=== PATIENT | male | born 1995 | race American Indian/Alaskan Native ===

== ENCOUNTER 2020-10-12 06:37 | Day surgery (SDC) | payer BC ==
[2020-10-08 10:13] LABS: Hematocrit 46.4 % (35.5-45.6); Hemoglobin 15.7 gm/dl (11.8-15.2); Mean Corpuscular HGB Conc 34 % (32-34); Mean Corpuscular Volume 88 fl (84-94); Platelet Count 128 K/mm3 (140-440); Red Blood Count 5.29 M/mm3 (3.65-5.03); Red Cell Distribution Width 13.4 % (13.2-15.2)
[2020-10-08 10:31] LABS: Blood Urea Nitrogen 19 mg/dL (9-20); Calcium 9.5 mg/dL (8.4-10.2); Hemolysis Index 5
[2020-10-08 10:39] LABS: BUN/Creatinine Ratio 27
[~2020-10-12 06:37] MED LIST: ACETAMINOPHEN 500 MG TAB PO SCH; BACTERIOSTATIC SODIUM CHLORIDE 0.9% 30 ML VIAL INFILTRATI ONE; CELECOXIB 200 MG CAP PO NR; GABAPENTIN 300 MG CAP PO NR; LACTATED RINGERS 1,000 ML IV SCH; MAGNESIUM OXIDE 400 MG TAB PO SCH; MIDAZOLAM 2 MG/2 ML INJ IV NR
[2020-10-12] MEDS ORDERED: ceFAZolin/STERILE WATER 2 GM/20 ML SYRINGE IV NR (07:00)
--- NOTE | 2020-10-12 07:08 | Anesthesia Consultation ---
Anesthesia Consult and Med Hx Date of service: 10/12/20 - Airway Anesthetic Teeth Evaluation: Good ROM Head & Neck: Adequate Mental/Hyoid Distance: Adequate Mallampati Class: Class II Intubation Access Assessment: Good - Pulmonary Exam CTA: Yes - Cardiac Exam Cardiac Exam: RRR - Pre-Operative Health Status ASA Pre-Surgery Classification: ASA1 Proposed Anesthetic Plan: General - Pulmonary Hx Smoking: No Hx Asthma: Yes (INHALER USE PRN-LAST USED 1 MONTH AGO) Hx Sleep Apnea: No (MARTHA PRE SCREEN LOW RISK) - Central Nervous System Hx Psychiatric Problems: No - Hematic Hx Anemia: No - Other Systems Hx Cancer: No
--- NOTE | 2020-10-12 07:09 | Anesthesia Day of Surgery ---
Anesthesia Day of Surgery - Day of Surgery Patient Examined: Yes Patient H&P Reviewed: Yes Patient is NPO: Yes
[2020-10-12] MEDS ORDERED: BUPIVACAINE/PF (0.5%) 5 MG/1 ML 30 ML VIAL INFILTRATI ONE ×2 (07:28→08:33)
[2020-10-12] MEDS ORDERED: SUCCINYLCHOLINE CHLORIDE 200 MG/10 ML INJ MDV ONE (07:28)
[2020-10-12] MEDS ORDERED: ONDANSETRON 4 MG/2 ML INJ ONE (07:28)
[2020-10-12] MEDS ORDERED: GLYCOPYRROLATE 0.4 MG/2 ML INJ ONE (07:28)
[2020-10-12] MEDS ORDERED: fentaNYL 100 MCG/2 ML INJ ONE (07:28)
[2020-10-12] MEDS ORDERED: NEOSTIGMINE 10MG/10 ML INJ MDV ONE (07:28)
[2020-10-12] MEDS ORDERED: LIDOCAINE MPF (2%) 20 MG/1 ML VIAL 5 ML ONE (07:28)
[2020-10-12] MEDS ORDERED: dexAMETHasone 20 MG/5 ML VIAL ONE (07:28)
[2020-10-12] MEDS ORDERED: propofoL 200 MG/20 ML VIAL IV ONE (07:28)
[2020-10-12] MEDS ORDERED: LIDOCAINE (1%) 10 MG/1 ML VIAL 20 ML MDV ONE (07:28)
[2020-10-12] MEDS ORDERED: PHENYLEPHRINE/NS 1,000 MCG/10 ML SYRINGE (OR USE) IV ONE (07:28)
[2020-10-12] MEDS ORDERED: ROCURONIUM 50 MG/5 ML INJ IV ONE (07:28)
[2020-10-12] MEDS ORDERED: ePHEDrine SULFATE 50 MG/1 ML INJ ONE (08:04)
[2020-10-12] MEDS ORDERED: ONDANSETRON 4 MG/2 ML INJ IV PRN (08:22)
[2020-10-12] MEDS ORDERED: HYDROmorphone 1 MG/1 ML INJ IV PRN ×2 (08:22)
[2020-10-12] MEDS ORDERED: LIDOCAINE (1%) 10 MG/1 ML VIAL 20 ML MDV INFILTRATI ONE (08:34)
[2020-10-12] MEDS ORDERED: WATER FOR IRRIG STERILE 1,500 ML BOTTLE IR ONE (08:35)
[2020-10-12] MEDS ORDERED: HYDROmorphone 1 MG/1 ML INJ ONE (09:42)
[2020-10-12] MEDS ORDERED: SODIUM CHLORIDE 0.9% IRRIG SOLN 2000 ML IR ONE (10:38)
--- NOTE | 2020-10-12 10:57 | Short Stay Summary ---
Short Stay Documentation Date of service: 10/12/20 - History Principal diagnosis: right inguinal hernia H&P: obtained from office - Allergies and Medications Current Medications: Allergies No Known Allergies Allergy (Verified 10/06/20 15:30) Home Medications Medication Instructions Recorded Confirmed Last Taken Type Albuterol Sulfate [Proventil Hfa] 2 puff IH PRN PRN 10/06/20 10/12/20 10/12/20 06:00 History Active Medications Acetaminophen (Acetaminophen 500 Mg Tab) 1,000 mg PO ONCE SARAH Stop: 10/12/20 23:00 Last Admin: 10/12/20 07:10 Dose: 1,000 mg Documented by: Cefazolin Sodium (Cefazolin/Sterile Water 2 Gm/20 Ml Syringe) 2 gm IV PREOP NR Stop: 10/12/20 23:45 Celecoxib (Celecoxib 200 Mg Cap) 400 mg PO PREOP NR Stop: 10/12/20 23:00 Last Admin: 10/12/20 07:10 Dose: 400 mg Documented by: Gabapentin (Gabapentin 300 Mg Cap) 600 mg PO PREOP NR Stop: 10/12/20 23:00 Last Admin: 10/12/20 07:10 Dose: 600 mg Documented by: Hydromorphone HCl (Hydromorphone 1 Mg/1 Ml Inj) 0.25 mg IV Q10MIN PRN PRN Reason: Pain, Moderate (4-6) Stop: 10/12/20 23:00 Hydromorphone HCl (Hydromorphone 1 Mg/1 Ml Inj) 0.5 mg IV Q10MIN PRN PRN Reason: Pain , Severe (7-10) Stop: 10/12/20 23:00 Lactated Ringer's (Lactated Ringers) 1,000 mls @ 125 mls/hr IV DIRECT SARAH Last Admin: 10/12/20 07:15 Dose: 125 mls/hr Documented by: Magnesium Oxide (Magnesium Oxide 400 Mg Tab) 400 mg PO ONCE SARAH Stop: 10/12/20 23:01 Last Admin: 10/12/20 07:10 Dose: 400 mg Documented by: Midazolam HCl (Midazolam 2 Mg/2 Ml Inj) 2 mg IV PREOP NR Stop: 10/12/20 23:59 Last Admin: 10/12/20 07:20 Dose: 2 mg Documented by: Ondansetron HCl (Ondansetron 4 Mg/2 Ml Inj) 4 mg IV ONCE PRN PRN Reason: Nausea And Vomiting Stop: 10/12/20 23:00 - Brief post op/procedure progress note Date of procedure: 10/12/20 Pre-op diagnosis: right inguinal hernia Post-op diagnosis: other (bilateral inguinal hernia) Procedure: robotic assisted bilateral inguinal hernia repair with mesh Anesthesia: GETA, local, other (ilioinguinal nerve block b/l) Findings: 1. Large indirect right inguinal hernia containing omentum 2. Small indirect left inguinal hernia Surgeon: Edd GA [employer] TECHNICIAN - [employer]) Estimated blood loss: minimal Pathology: none Condition: stable - Hospital course Hospital course: Pt observed in PACU and discharged to home in stable condition when criteria met - Disposition Condition at discharge: Good Disposition: DC-01 TO HOME OR SELFCARE Short Stay Discharge Plan Activity: other (no heavy lifting greater than 15 lbs) Diet: regular Wound: open to air Additional Instructions: SEE PRINTED DISCHARGE INSTRUCTIONS Follow up with: PRIMARY CARE,MD [Primary Care Provider] - 7 Days IVA BARRETT DO [Staff Physician] - 14 Days Prescriptions: Gabapentin 300 mg PO BID #6 capsule Ibuprofen [Motrin 800 MG tab] 800 mg PO Q8HR #30 tablet oxyCODONE /ACETAMINOPHEN [Percocet 5/325] 1 tab PO Q4HR PRN #20 tab PRN Reason: Pain , Severe (7-10)
[2020-10-12] MEDS ORDERED: oxyCODONE /ACETAMINOPHEN 5-325MG TAB PO PRN (11:00)
--- NOTE | 2020-10-12 11:43 | Operative Report ---
Operative Report Operative Report: Date of procedure: 10/12/20 Pre-op diagnosis: right inguinal hernia Post-op diagnosis: other (bilateral inguinal hernia) Procedure: Robotic assisted bilateral inguinal hernia repair with mesh Anesthesia: GETA, local, other (ilioinguinal nerve block b/l) Findings: 1. Large indirect right inguinal hernia containing omentum 2. Small indirect left inguinal hernia Surgeon: IVA BARRETT (Edd Lockwood - TER[facility]) Estimated blood loss: minimal Pathology: none Condition: stable Hospital course: Pt observed in PACU and discharged to home in stable condition when criteria met HPI and indication: Patient is a 25-year-old male with a longstanding history of a right inguinal hernia. The hernia is reducible however has become more bothersome and larger over time. It was recommended that the hernia be repaired. I discussed all risk, benefits, alternatives to repair with the patient and questions were answered. I explained that if the hernia was found on the left side at the same time, this would be fixed as well. The patient was agreeable. Consent obtained for robotic assisted left inguinal hernia repair with mesh, possible right, possible open. Procedure in detail: Patient was identified in the preoperative area, take back to operating room placed on operative table in supine position. After anesthesia was induced both arms were tucked and all bony prominences padded appropriately. A Lynn catheter was sterilely placed by the circulating nurse. The abdomen and b/l groin was then prepped and draped in usual sterile fashion a timeout performed. Local anesthetic was infiltrated to skin at the intended incision sites. A supraumbilical incision was made through which a Veress needle was inserted. Veress needle positioning was confirmed using saline drop test and the abdomen insufflated to 15 mmHg. Once the abdomen was insufflated, the Veress needle was removed and a 5 mm Optiview trocar was placed as incision. The abdomen is inspected there was no underlying injury to any of the abdominal structures. Patient was placed in Trendelenburg and the pelvis examined. There was a large right inguinal hernia containing omentum. There was also a very small left inguinal hernia. At this point, an 8 mm right upper quadrant and left upper quadrant robotic trocars were then placed under direct visualization. The 5 mm supraumbilical trocar was removed and replaced with a 12 mm balloon trocar under direct visualization. A Ray-Pantera was placed into the abdomen. The robot was then docked. A fenestrated bipolar was placed into arm #2 and a monopolar scissor in arm #1. The surgeon was then transferred to the console. I started by repairing the RIGHT inguinal hernia. First, I created a preperitoneal flap. The omentum was reduced. The peritoneum was scored approximately 5 to 6 cm from the hernia defect. The peritoneum was then incised from the midline to the ASIS. The preperitoneal flap was then developed in an avascular plane. I first defined the medial margin by dissecting to the pubic tubercle. The pubic tubercle was cleared of overlying fatty tissue using blunt dissection. I then created the lateral margin in a similar fashion. Great care was taken to avoid injury to any nerves. I then started to reduce the hernia sac. The hernia sac was grasped and retracted laterally and cremasteric muscles were divided in a very careful fashion. During the dissection, the cord structures were identified and protected. The cord structures and vas deferens were visualized throughout the entire dissection. There was a small cord lipoma associated with the hernia sac which was reduced. Once the hernia sac was completely excised, the peritoneal flap was checked for hemostasis. Any additional cremasteric fibers that were were tenting up the peritoneum were divided. The hernia sac was large and redundant. Hemostasis was carefully ensured. I then proceeded to repairing the LEFT side. The dissection was carried out in a similar fashion to left side. The peritoneal flap was carried out to the right side and one large flap created. A very small indirect inguinal hernia was identified. The pocket was checked for hemostasis which was ensured. I decided to repair both hernias with large 3D max mesh. First the RIGHT sided mesh along with suture material was placed into the abdomen by the communications assistant. The mesh was positioned into the preperitoneal flap in the usual fashion. The medial portion of the mesh was sutured to Jj's ligament using an interrupted 2-0 Vicryl stitch. The lateral aspect of the mesh was sutured to the anterior lateral abdominal wall using a 2-0 Vicryl interrupted stitch. The mesh was seen to lay flat in the pocket with excellent coverage. Then the LEFT sided mesh along with suture material was introduced into the abdomen by the communications assistant. This was positioned and sutured into place in the same way as the right side. The right and left mesh was also sutured to each other using a 2-0 vicryl interrupted suture. The mesh was seen to lay flat and have adequate coverage bilaterally. The peritoneum was reapproximated using 3-0 vloc running suture x2. The entirety of the mesh was covered with peritoneum. The robot was then undocked and the surgeon scrubbed back in. The remainder of the case was performed laparoscopically. All sharp materials along with a Ray-Pantera were removed from the abdomen under direct visualization. The 12 mm port was removed and the fascia closed using a interrupted 0 Vicryl stitch with a Agustin Angel device. The abdomen was then slowly desufflated and the mesh was seen to lay flat in the preperitoneal space bilaterally. The remaining trocars were removed. Skin incisions were once again infiltrated with local anesthetic. Bilateral ilioinguinal nerve blocks were also performed with 5 cc of local anesthetic on each side. The skin incisions were approximated with 4-0 Monocryl subcuticular stitches and skin glue. At the end of the case all sponge, instrument, sharp counts were correct x2. Patient was awoken from anesthesia and Lynn catheter removed. Both testicles were palpated and in the scrotum in anatomic position. The patient was taken to PACU in stable condition.
--- NOTE | 2020-10-12 16:14 | Post Anesthesia Evaluation ---
- Post Anesthesia Evaluation Patient Participated: Yes Airway Patent: Yes Stable Respiratory Function: Yes Nausea/Vomiting: No Temp > 96.8F: Yes Pain Manageable: Yes Adequeate Hydration: Yes Anesthesia Complications: No Block Receding Appropriately: Not Applicable Patient on Ventilator: No
[2020-10-12 19:28] VITALS: BP 124/68
== END 2020-10-12 06:38 | disposition home or self-care (01) ==
LOC: OR 06:37
PROVIDERS: ATTEND Surgery
DX: K40.20 Bilateral inguinal hernia, without obstruction or gangrene, not specified as recurrent (principal); J45.909 Unspecified asthma, uncomplicated; Z86.19 Personal history of other infectious and parasitic diseases; Z79.899 Other long term (current) drug therapy; Z98.890 Other specified postprocedural states; Z83.3 Family history of diabetes mellitus
CPT/HCPCS: 36415; 49650; 80048; 85027; A4217; C1781; J0330; J0690; J1100; J1170; J2250; J2370; J2405; J2704; J2710; J3010; J7120; S2900; U0003